=== PATIENT | female | born 1995 | race Caucasian/White ===

== ENCOUNTER 2017-04-23 09:50 | Emergency (ER) | payer MEDICAID ==
[~2017-04-23 09:50] MED LIST: IBUP600 PO; OXYC1SOL5 PO
--- NOTE | 2017-04-23 11:37 | PD ---
HPI Chief Complaint Syncopal episode Date Seen: Apr 23, 2017 Time Seen: 11:25 Travel History International Travel<30 Days: No Contact w/Intl Traveler<30Days: No Known Affected Area: No History of Present Illness HPI Pt is a 21 yo who presents to ED with c/o fall yesterday. Pt has EDC -07-05-2017, making her 29 weeks and [address] Wagner, previously uncomplicated. Pt states she slipped while cleaning a spiral staircase. Pt states she landed on her left side. Did not hit her head or her abdomen. Denies any vaginal bleeding or abdominal pain. She reports active movements. Weeks Gestation: 29 Para: 1 : 2 History Past Medical History Medical History: Denies Significant Hx Obstetric History Obstetric History previous term vaginal delivery, uncomplicated. this previously uncomplicated Past Surgical History Surgical History: No Previous Surgery Family History Family History: Negative Social History Alcohol Use: No Tobacco Use: No Substance Abuse: No Allergies-Medications (Allergen,Severity, Reaction): Coded Allergies: No Known Allergies (Verified , 03/02/16) Home Meds Active Scripts Ibuprofen (Motrin 600 Mg Tab) 600 Mg Tab, 600 MG PO Q6H Y for pain, #30 TAB 2 Refills Prov:Lobito Wagner MD 03/03/16 Oxycodone W/ Acetaminophen (Oxycodone/Acetaminophen 5-325 mg/5Ml) 5 mg/325 mg Tab, 1 TAB PO Q4H for moderate pain, #15 TAB Prov:Lobito Wagner MD 03/03/16 Review of Systems Except as stated in HPI: all other systems reviewed are Neg Physical Exam Narrative GENERAL: Well-nourished, well-developed patient. SKIN: Warm and dry. HEAD: Normocephalic and atraumatic. EYES: No scleral icterus. No injection or drainage. ENT: No nasal drainage noted. Mucous membranes pink. Airway patent. NECK: Supple, trachea midline. No JVD. CARDIOVASCULAR: Regular rate and rhythm without murmurs, gallops, or rubs. RESPIRATORY: Breath sounds equal bilaterally. No accessory muscle use. BREASTS: Bilateral exam showed no masses , no retractions, no nipple discharge. ABDOMEN/GI: Abdomen soft, non-tender, bowel sounds present, no rebound, no guarding Gravid to 29 weeks size No tenderness. GENITOURINARY: Uterine Contractions: [none] FHT's: Category: [1] Baseline: [130s] Reactive: [-] Variability: [good] Decels: [none] EXTREMITIES: No cyanosis or edema. BACK: Nontender without obvious deformity. No CVA tenderness. NEUROLOGICAL: Awake and alert. Motor and sensory grossly within normal limits. Five out of 5 muscle strength in all muscle groups. Normal speech. Data Data Vital Signs Reviewed: Yes MDM Interpretation(s) s/p fall yesterday. Reassuring testing. no abdominal pain, no vaginal bleeding Plan s/p fall 1 day ago. Reassuring testing. Will discharge home with precautions, Diagnosis Diagnosis: Primary Impression: 29 weeks gestation of Additional Impression: Fall (on) (from) unspecified stairs and steps, initial encounter Disposition: 01 DISCHARGE HOME Condition: Good Flavio Mendiola MD Apr 23, 2017 11:37
== END 2017-04-23 11:38 | disposition home or self-care (01) ==
LOC: HOBED 09:50
DX: Z04.3 Encounter for examination and observation following other accident (principal); Z3A.29 29 weeks gestation of pregnancy
CPT/HCPCS: 99283

== ENCOUNTER 2017-06-10 14:42 | Emergency (ER) | payer MEDICAID ==
--- NOTE | 2017-06-10 16:48 | PD ---
HPI Chief Complaint Spotting red and some cramping Date Seen: Jun 10, 2017 Time Seen: 16:40 Travel History International Travel<30 Days: No Contact w/Intl Traveler<30Days: No Known Affected Area: No History of Present Illness HPI Patient is 21-year-old white female at [address] Wagner care presents complaining of vaginal spotting just some light pink and red on her toilet paper. No ilda blood. No leakage of fluid. heart rate tracing is active and there is no regular contractions. Patient had placenta previa early in but this is resolved on ultrasound in March so only low-lying at this time Weeks Gestation: 36 Para: 1 : 2 History Obstetric History Obstetric History One vaginal delivery Social History Alcohol Use: No Tobacco Use: No Substance Abuse: No Allergies-Medications (Allergen,Severity, Reaction): Coded Allergies: No Known Allergies (Verified , 03/02/16) Home Meds Active Scripts Ibuprofen (Motrin 600 Mg Tab) 600 Mg Tab, 600 MG PO Q6H Y for pain, #30 TAB 2 Refills Prov:Lobito Wagner MD 03/03/16 Oxycodone W/ Acetaminophen (Oxycodone/Acetaminophen 5-325 mg/5Ml) 5 mg/325 mg Tab, 1 TAB PO Q4H for moderate pain, #15 TAB Prov:Lobito Wagner MD 03/03/16 Review of Systems General / Constitutional: No: Fever, Weight Gain, Chills, Other Eyes: No: Diploplia, Blurred Vision, Visual changes, Pain, Photophobia HENT: No: Headaches, Vertigo, Lightheadedness Cardiovascular: No: Irregular Rhythm, Chest Pain or Discomfort, Palpitations, Tachycardia, Syncope, Varicosities, Edema, Cyanosis Respiratory: No: Cough, Short of Breath, Other Gastrointestinal: No: Nausea, Vomiting, Diarrhea Genitourinary: Vaginal Bleeding, No: Decreased Urinary Output, Oliguria Musculoskeletal: No: Limited ROM, Weakness, Cramping, Edema, Pain Skin: No Rash, No Itching, No Dryness, No Lumps, No Change in Pigmentation, No Change in Nails, No Alopecia, No Lesions Neurologic: No: Weakness, Dizziness, Syncope, Focal Abnormalities, Coordination Problem, Headache, Slurred Speech, Seizures Psychiatric: No: Depression, Suicidal Ideations, Homicidal Ideation Endocrine: No: Heat Intolerance, Cold Intolerance, Polydipsia, Polyuria, Other Physical Exam Narrative GENERAL: Well-nourished, well-developed patient. SKIN: Warm and dry. HEAD: Normocephalic and atraumatic. EYES: No scleral icterus. No injection or drainage. ENT: No nasal drainage noted. Mucous membranes pink. Airway patent. NECK: Supple, trachea midline. No JVD. CARDIOVASCULAR: Regular rate and rhythm without murmurs, gallops, or rubs. RESPIRATORY: Breath sounds equal bilaterally. No accessory muscle use. BREASTS: Bilateral exam showed no masses , no retractions, no nipple discharge. ABDOMEN/GI: Abdomen soft, non-tender, bowel sounds present, no rebound, no guarding Gravid to [-36] weeks size Fundal Height: [36-] GENITOURINARY: External Genitalia: intact and normal in appearance BUS glands: [-] Cervix: [-] Dilatation: [3-4 cm] Effacement: [50-] Station: [-3] Presentation: [vtx-] Membranes: [intact ] Uterine Contractions: [occasional-] FHT's: Category: [1-] Baseline: [-150] Reactive: [yes-] Variability: [-mod] Decels: [none-] EXTREMITIES: No cyanosis or edema. BACK: Nontender without obvious deformity. No CVA tenderness. NEUROLOGICAL: Awake and alert. Motor and sensory grossly within normal limits. Five out of 5 muscle strength in all muscle groups. Normal speech. MDM Interpretation(s) Patient is 21-year-old white female at 36 weeks presents with some vaginal spotting noted today very minimal. She says she's never had that before so she was concerned and came and make sure that was okay. She denies leakage of fluid or significant contractions she has had some cramps. heart rate tracing is reactive and there is only an occasional contraction. Patient's cervix is 3-4/ 50% and -2 Plan Plan to discharge patient home to observation, bedrest as needed, observe for any significant bleeding. She may take Tylenol for discomfort, heating pad or hot bath first symptom relief. And a follow-up with her OB provider. Diagnosis Diagnosis: Primary Impression: Vaginal spotting Additional Impression: 36 weeks gestation of Disposition: DISCHARGE HOME Condition: Stable Sandeep Deng II, MD Jun 10, 2017 16:48
== END 2017-06-10 18:07 | disposition home or self-care (01) ==
LOC: HOBED 14:42
DX: O26.853 Spotting complicating pregnancy, third trimester (principal); Z3A.36 36 weeks gestation of pregnancy; Z79.899 Other long term (current) drug therapy
CPT/HCPCS: 59025; 84112

== ENCOUNTER 2017-06-26 21:34 | Inpatient (IN) | payer MEDICAID ==
[~2017-06-26] VITALS: Ht 170.2 cm; Wt 92.0 kg
[2017-06-26] VITALS (7 sets, daily range): BP systolic 113–138; BP diastolic 52–98; PULSE 92–112; RESP 18–22; TEMP 99.2
[~2017-06-26 21:34] MED LIST changes: +DIPHTH/TETANUS/ACEL PERTUSSIS (BOOSTER) 0.5 ML VIAL/PFS IM ONE; +MEASLES, MUMPS, RUBELLA VACCINE 0.5 ML VIAL SQ ONE
[2017-06-26] MEDS ORDERED: fentaNYL 2MCG-BUPIV 0.125% INJ 100 ML ONE (22:04)
[2017-06-26] MEDS ORDERED: LACTATED RINGER'S 1000 ML INJ 1,000 ML IV SCH (22:08)
[2017-06-26] MEDS ORDERED: LACTATED RINGER'S 1000 ML INJ 1,000 ML IV PRN (22:08)
[2017-06-26] MEDS ORDERED: MINERAL OIL 10 ML VIAL TOPICAL PRN (22:15)
[2017-06-26] MEDS ORDERED: OXYTOCIN 30 UNITS-500ML PREMIX 500 ML IV ONE ×2 (22:15→23:45)
[2017-06-26] MEDS ORDERED: LIDOCAINE HCL 1% 50 ML VIAL I-DERMAL PRN (22:15)
[2017-06-26] MEDS ORDERED: SODIUM CHLORID 0.9% 500 ML INJ 500 ML IV PRN (22:15)
[2017-06-26] MEDS ORDERED: CITRIC ACID-SODIUM CITRATE LIQ 30 ML UDC PO SCH (22:15)
[2017-06-26] MEDS ORDERED: ONDANSETRON HCL 4 MG/2 ML VIAL IV PUSH PRN (22:15)
[2017-06-26] MEDS ORDERED: LIDOCAINE HCL 1% 50 ML VIAL INFIL PRN (22:15)
--- NOTE | 2017-06-26 22:19 | HHI.HP ---
HPI Chief Complaint Decreased movement and regular uterine contractions Date Seen: Jun 26, 2017 Time Seen: 22:00 Travel History International Travel<30 Days: No Contact w/Intl Traveler<30Days: No History of Present Illness HPI 21-year-old white female comes in with regular uterine contractions and decreased movement her cervix is 8 cm and she is being admitted for labor Weeks Gestation: 38 Para: 1 : 2 History Past Medical History Narrative Medical Chronic anemia Obstetric History Obstetric History Para 1001 Past Surgical History Narrative Surgical Negative Family History Family History: Negative Social History Alcohol Use: No Tobacco Use: No Substance Abuse: No Allergies-Medications (Allergen,Severity, Reaction): Coded Allergies: No Known Allergies (Verified , 03/02/16) Home Meds Active Scripts Ibuprofen (Motrin 600 Mg Tab) 600 Mg Tab, 600 MG PO Q6H Y for pain, #30 TAB 2 Refills Prov:Lobito Wagner MD 03/03/16 Oxycodone W/ Acetaminophen (Oxycodone/Acetaminophen 5-325 mg/5Ml) 5 mg/325 mg Tab, 1 TAB PO Q4H for moderate pain, #15 TAB Prov:Lobito Wagner MD 03/03/16 Physical Exam Narrative GENERAL: Well-nourished, well-developed patient. SKIN: Warm and dry. HEAD: Normocephalic and atraumatic. EYES: No scleral icterus. No injection or drainage. ENT: No nasal drainage noted. Mucous membranes pink. Airway patent. NECK: Supple, trachea midline. No JVD. CARDIOVASCULAR: Regular rate and rhythm without murmurs, gallops, or rubs. RESPIRATORY: Breath sounds equal bilaterally. No accessory muscle use. BREASTS: Bilateral exam showed no masses , no retractions, no nipple discharge. ABDOMEN/GI: Abdomen soft, non-tender, bowel sounds present, no rebound, no guarding Gravid to [-] weeks size Fundal Height: [-] GENITOURINARY: External Genitalia: intact and normal in appearance BUS glands: [-] Cervix: [8] Dilatation: 8 Effacement: 100% Station: +2 next vertex Presentation: [-] Membranes: [intact or ruptured] Uterine Contractions: [-] FHT's: Category: [-] Baseline: [-] Reactive: [-] Variability: [-] Decels: [-] EXTREMITIES: No cyanosis or edema. BACK: Nontender without obvious deformity. No CVA tenderness. NEUROLOGICAL: Awake and alert. Motor and sensory grossly within normal limits. Five out of 5 muscle strength in all muscle groups. Normal speech. Caprini VTE Risk Assessment Caprini VTE Risk Assessment: No/Low Risk (score <= 1) Caprini Risk Assessment Model Point Value = 1 Point Value = 2 Point Value = 3 Point Value = 5 Age 41-60 Minor surgery BMI > 25 kg/m2 Swollen legs Varicose veins or History of unexplained or recurrent spontaneous Oral contraceptives or hormone replacement Sepsis (< 1 month) Serious lung disease, including pneumonia (< 1 month) Abnormal pulmonary function Acute myocardial infarction Congestive heart failure (< 1 month) History of inflammatory bowel disease Medical patient at bed rest Age 61-74 Arthroscopic surgery Major open surgery (> 45 min) Laparoscopic surgery (> 45 min) Malignancy Confined to bed (> 72 hours) Immobilizing plaster cast Central venous access Age >= 75 History of VTE Family history of VTE Factor V Leiden Prothrombin [id number] Lupus anticoagulant Anticardiolipin antibodies Elevated serum homocysteine Heparin-induced thrombocytopenia Other congenital or acquired thrombophilia Stroke (< 1 month) Elective arthroplasty Hip, pelvis, or leg fracture Acute spinal cord injury (< 1 month) Prophylaxis Regimen Total Risk Factor Score Risk Level Prophylaxis Regimen 0-1 Low Early ambulation 2 Moderate Order ONE of the following: *Sequential Compression Device (SCD) *Heparin 5000 units SQ BID 3-4 Higher Order ONE of the following medications: *Heparin 5000 units SQ TID *Enoxaparin/Lovenox 40 mg SQ daily (WT < 150 kg, CrCl > 30 mL/min) *Enoxaparin/Lovenox 30 mg SQ daily (WT < 150 kg, CrCl > 10-29 mL/min) *Enoxaparin/Lovenox 30 mg SQ BID (WT < 150 kg, CrCl > 30 mL/min) AND/OR *Sequential Compression Device (SCD) 5 or more Highest Order ONE of the following medications: *Heparin 5000 units SQ TID (Preferred with Epidurals) *Enoxaparin/Lovenox 40 mg SQ daily (WT < 150 kg, CrCl > 30 mL/min) *Enoxaparin/Lovenox 30 mg SQ daily (WT < 150 kg, CrCl > 10-29 mL/min) *Enoxaparin/Lovenox 30 mg SQ BID (WT < 150 kg, CrCl > 30 mL/min) AND *Sequential Compression Device (SCD) Data Data Orders Orders Fentanyl 2mcg-Bupiv 0.125% Inj (Fentanyl (06/26/17 22:04) Admit To Inpatient (06/26/17 ) Code Status (06/26/17 22:08) Vital Signs (Adult) .Per protocol (06/26/17 22:08) Activity Oob Ad Caroline (06/26/17 22:08) Heart (06/26/17 22:08) Amnioinfusion (06/26/17 22:08) Urinary Catheter Management .ONCE (06/26/17 22:08) Diet Liquid (06/27/17 Breakfast) Lactated Ringer's 1000 Ml Inj (Lr 1000 M (06/26/17 22:08) Lactated Ringer's 1000 Ml Inj (Lr 1000 M (06/26/17 22:08) Sodium Chlorid 0.9% 500 Ml Inj (Ns 500 M (06/26/17 22:15) Sodium Chlor 0.9% 1000 Ml Inj (Ns 1000 M (06/26/17 22:28) Lidocaine 1% Inj (50 Ml) (Xylocaine 1% I (06/26/17 22:15) Citric Acid-Sodium Citrate Liq (Bicitra (06/26/17 22:15) Ondansetron Inj (Zofran Inj) (06/26/17 22:15) Fentanyl Inj (Fentanyl Inj) (06/26/17 22:15) Fentanyl Inj (Fentanyl Inj) (06/26/17 22:15) Complete Blood Count With Diff (06/26/17 22:08) Hold Clot (06/26/17 22:08) Abo/Rh Blood Type (06/26/17 22:08) Urinalysis - C+S If Indicated (06/26/17 22:08) Drug Screen, Random Urine (06/26/17 22:08) Resp Oxygen Non Rebreathe Mask (06/26/17 ) ^ Epidural / Intrathecal Infus (06/26/17 22:08) Oxytocin 30 Units-500ml Premix (Pitocin (06/26/17 22:15) Lidocaine 1% Inj (50 Ml) (Xylocaine 1% I (06/26/17 22:15) Light Mineral Oil (Muri-Lube Oil) (06/26/17 22:15) Inpatient Certification (06/26/17 ) Assessment/Plan Assessment and Plan 1. Intrauterine at 38 weeks and 5 days with advanced labor will go ahead and admit her and expected normal vaginal delivery 2. GBS 3. Anemia we'll check her blood count and continue her iron. During her period I stressed the need for iron supplementation. Lobito Wagner MD Jun 26, 2017 22:19
[2017-06-26 22:27] LABS: AUTOMATED NEUTROPHIL # 9.6 TH/MM3 (1.8-7.7); BASOPHIL # 0.1 TH/MM3 (0-0.2); BASOPHIL % 0.4 % (0.0-2.0); EOSINOPHIL # 0.2 TH/MM3 (0-0.4); EOSINOPHIL % 1.5 % (0.0-4.0); HEMATOCRIT 30.7 % (35.0-46.0); HEMOGLOBIN 9.8 GM/DL (11.6-15.3); LYMPH % 18.2 % (9.0-44.0); LYMPHOCYTE # 2.4 TH/MM3 (1.0-4.8); MEAN CELL VOLUME 67.4 FL (80.0-100.0); MEAN CORPUSCULAR HEMOGLOBIN 21.4 PG (27.0-34.0); MEAN CORPUSCULAR HGB CONC 31.8 % (32.0-36.0); MEAN PLATELET VOLUME 8.8 FL (7.0-11.0); MONO % 8.6 % (0.0-8.0); MONOCYTE # 1.2 TH/MM3 (0-0.9); NEUT % 71.3 % (16.0-70.0); PLATELET COUNT 325 TH/MM3 (150-450); RED BLOOD COUNT 4.56 MIL/MM3 (4.00-5.30); RED CELL DISTRIBUTION WIDTH 15.5 % (11.6-17.2); WHITE BLOOD COUNT 13.5 TH/MM3 (4.0-11.0)
[2017-06-26] MEDS ORDERED: SODIUM CHLOR 0.9% 1000 ML INJ 1,000 ML IV PRN (22:28)
[2017-06-26 22:41] LABS: BACTERIA, URINE MOD /hpf; BILIRUBIN, URINE NEG (NEG); BLOOD, URINE NEG (NEG); GLUCOSE,URINE NEG (NEG); KETONE, URINE NEG (NEG); MUCUS URINE FEW /lpf (OCC); NITRITE,URINE NEG (NEG); SQUAMOUS EPITHELIAL CELL URINE 4 /hpf (0-5); URINE COLOR LIGHT-YELLOW (YELLW/STRAW); URINE LEUKOCYTE ESTERASE SMALL (NEG)
[2017-06-26] MEDS ORDERED: MEPERIDINE HCL 50 MG/ML VIAL ONE (22:55)
--- NOTE | 2017-06-26 23:33 | PD.OB.DELI ---
Weeks gestation: 38 Gest age assessed date: Jun 26, 2017 Pt started active labor?: Yes Active labor start date: Jun 26, 2017 Medical induction of labor?: No Artificial rupture of membrane: No Anesthesia: None Episiotomy: None Vaginal Delivery: Normal Presentation: Occiput anterior Nuchal Cord: x1 Delayed cord clamping (45 sec): Yes : Male Delivery date: Jun 26, 2017 Delivery time: 22:50 One Minute : 8 Five Minute : 9 Weight: 8/1 Placenta: Spontaneous delivery, Intact, 3 vessel cord Laceration: Perineal laceration Estimated blood loss: 450 Additional Information Quick delivery of [place] No meds and very painful. Tight nucal cord X1`. reduced on perinuem Placenta S/I/3VC Uterine atony with some bleeding..Internal massage quickly clamped the uterus down. Uterus is empty. Small 2nd degree perineal tear repaired. Lobito Wagner MD Jun 26, 2017 23:33
[2017-06-26] MEDS ORDERED: ONDANSETRON ODT 4 MG TAB PO PRN (23:45)
[2017-06-26] MEDS ORDERED: ZOLPIDEM TARTRATE 5 MG TAB PO PRN (23:45)
[2017-06-26] MEDS ORDERED: WITCH HAZEL 50%/GLYCERIN 12.5% 40 PAD JAR TOPICAL PRN (23:45)
[2017-06-26] MEDS ORDERED: DOCUSATE SODIUM 50 MG/SENNA 8.6 MG TAB PO PRN (23:45)
[2017-06-26] MEDS ORDERED: BENZOCAINE 20% TOPICAL SPRAY 60 ML CAN TOPICAL PRN (23:45)
[2017-06-26] MEDS ORDERED: OXYTOCIN 30 UNITS-500ML PREMIX 500 ML IV SCH (23:45)
[2017-06-26] MEDS ORDERED: ALUMINUM/MAGNESIUM/SIMETH 30 ML CUP PO PRN (23:45)
[2017-06-26] MEDS ORDERED: SODIUM CHLORIDE 0.9% FLUSH 10 ML FLUSH IV FLUSH PRN (23:45)
[2017-06-27] VITALS (8 sets, daily range): BP systolic 100–123; BP diastolic 53–77; PULSE 78–91; RESP 16–20; TEMP 95.8–98.3; O2SAT 0
[2017-06-27] MEDS ORDERED: PREN29TA PO (00:19)
[2017-06-27] MEDS: SODIUM CHLORIDE 0.9% FLUSH 10 ML FLUSH IV FLUSH SCH (00:40)
[2017-06-27] MEDS: IBUPROFEN 800 MG TAB PO PRN ×3 (01:12→21:37)
[2017-06-27] MEDS: ACETAMINOPHEN 325 MG TAB PO PRN ×3 (03:27→14:10)
[2017-06-27] MEDS ORDERED: MEPERIDINE HCL 50 MG/ML VIAL IV PUSH ONE (06:00)
--- NOTE | 2017-06-27 12:27 | HHI.OB ---
Subjective Post Day: 1 Remarks Doing well Pain is controlled Bleeding is normal baby is doing well. Can we circumcise the baby ?? Objective Vitals/I&O Vital Signs Date Time Temp Pulse Resp B/P (MAP) Pulse Ox O2 Delivery O2 Flow Rate FiO2 06/27/17 08:00 95.8 78 20 109/65 (80) 0 06/27/17 01:19 98.3 88 16 123/71 (88) 06/27/17 00:25 98.2 06/27/17 00:25 18 06/27/17 00:15 87 116/77 (90) 06/27/17 00:02 86 112/73 (86) 06/27/17 00:01 18 06/26/17 23:50 18 06/26/17 23:46 92 122/98 (106) 06/26/17 23:30 97 117/67 (84) 06/26/17 23:26 99.2 06/26/17 23:17 105 113/52 (72) 06/26/17 23:15 18 06/26/17 22:18 112 22 138/74 (95) Objective Remarks GENERAL: Well-nourished, well-developed patient. CARDIOVASCULAR: Regular rate and rhythm without murmurs, gallops, or rubs. RESPIRATORY: Breath sounds equal bilaterally. No accessory muscle use. ABDOMEN/GI: Abdomen soft, non-tender. Fundus: Firm, non-tender at umbilicus. GENITOURINARY: Light to moderate bleeding. EXTREMITIES: No cyanosis or edema, non-tender, without signs of DVT. Medications and IVs Current Medications Medications (Trade) Dose Ordered Sig/Jatinder Route Start Time Stop Time Status Last Admin (NS Flush) 2 ml BID IV FLUSH 06/27/17 09:00 06/27/17 00:40 (NS Flush) 2 ml UNSCH PRN IV FLUSH 06/26/17 23:45 (Tylenol) 650 mg Q4H PRN PO 06/26/17 23:45 06/27/17 08:54 (Motrin) 800 mg Q8H PRN PO 06/26/17 23:45 06/27/17 08:53 (Americaine 20% Top Spr) 1 spray Q4H PRN TOPICAL 06/26/17 23:45 1/7/18 01:12 (Tucks Pads) 1 applic QID PRN TOPICAL 06/26/17 23:45 06/27/17 01:12 (Farzaneh-Colace) 2 tab Q12H PRN PO 06/26/17 23:45 (Ambien) 5 mg HS PRN PO 06/26/17 23:45 (Mag-Al Plus Susp Liq) 15 ml Q8H PRN PO 06/26/17 23:45 (Zofran Odt) 4 mg Q6H PRN PO 06/26/17 23:45 Assessment/Plan Assessment and Plan PPD #1 Doing well Routine care Circ tomorrow. Discharge Planning tomorrow Lobito Wagner MD Jun 27, 2017 12:27
[2017-06-27] MEDS ORDERED: IBUP1TAB7 PO (12:28)
--- NOTE | 2017-06-27 12:30 | HHI.DCPOC ---
Discharge Care Plan Diagnosis: (1) Vaginal delivery Report Symptoms to Your Doctor -Temperature above 100.5 degrees -Redness, of incision or excessive or foul smelling drainage -Unusual pain or calf pain -Increased vaginal bleeding -Painful or difficulty urinating -Feelings of extreme sadness or anxiety after 2 weeks Goals to Promote Your Health * To prevent worsening of your condition and complications * To maintain your health at the optimal level Directions to Meet Your Goals Take your medications as prescribed Follow your dietary instruction Follow activity as directed Ensure plenty of rest for recovery Drink fluids for hydration Keep your appointments as scheduled Take your immunizations and boosters as scheduled If your symptoms worsen call your PCP, if no PCP go to Urgent Care Center or Emergency Room Smoking is Dangerous to Your Health. Avoid second hand smoke Call the 24-hour crisis hotline for domestic abuse at Lobito Wagner MD Jun 27, 2017 12:30
--- NOTE | 2017-06-28 08:53 | HHI.OB ---
Subjective Post Day: 2 Objective Vitals/I&O Vital Signs Date Time Temp Pulse Resp B/P (MAP) Pulse Ox O2 Delivery O2 Flow Rate FiO2 06/27/17 21:33 97.8 06/27/17 21:33 91 16 100/53 (69) 06/27/17 09:00 95.8 78 20 109/65 (80) Objective Remarks GENERAL: Well-nourished, well-developed patient. CARDIOVASCULAR: Regular rate and rhythm without murmurs, gallops, or rubs. RESPIRATORY: Breath sounds equal bilaterally. No accessory muscle use. ABDOMEN/GI: Abdomen soft, non-tender. Fundus: Firm, non-tender at umbilicus. GENITOURINARY: Light to moderate bleeding. EXTREMITIES: No cyanosis or edema, non-tender, without signs of DVT. Medications and IVs Current Medications Medications (Trade) Dose Ordered Sig/Jatinder Route Start Time Stop Time Status Last Admin (NS Flush) 2 ml BID IV FLUSH 06/27/17 09:00 06/27/17 00:40 (NS Flush) 2 ml UNSCH PRN IV FLUSH 06/26/17 23:45 (Tylenol) 650 mg Q4H PRN PO 06/26/17 23:45 06/27/17 14:10 (Motrin) 800 mg Q8H PRN PO 06/26/17 23:45 06/27/17 21:37 (Americaine 20% Top Spr) 1 spray Q4H PRN TOPICAL 06/26/17 23:45 06/27/17 01:12 (Tucks Pads) 1 applic QID PRN TOPICAL 06/26/17 23:45 06/27/17 01:12 (Farzaneh-Colace) 2 tab Q12H PRN PO 06/26/17 23:45 (Ambien) 5 mg HS PRN PO 06/26/17 23:45 (Mag-Al Plus Susp Liq) 15 ml Q8H PRN PO 06/26/17 23:45 06/27/17 18:57 (Zofran Odt) 4 mg Q6H PRN PO 06/26/17 23:45 Assessment/Plan Assessment and Plan PPD #2 Doing well pain well managed with oral pain medication is going well Routine care Discharge Planning dc home today Theresa Sevilla Jun 28, 2017 08:53
[2017-06-28] MEDS: SODIUM CHLORIDE 0.9% FLUSH 10 ML FLUSH IV FLUSH SCH (09:00)
[2017-06-28 09:15] VITALS: BP 111/62; PULSE 84; RESP 20; TEMP 98.4
== END 2017-06-28 14:33 | disposition home or self-care (01) | DRG 774 ==
LOC: HOBED 21:34 → H2EB 22:16 → H1EA 06-27 01:10
PROVIDERS: ADMIT Obstetrics & Gynecology; ATTEND Obstetrics & Gynecology
PROC: 10E0XZZ Delivery of Products of Conception, External Approach (ICD-10-PCS; principal; 2017-06-26)
PROC: 0KQM0ZZ Repair Perineum Muscle, Open Approach (ICD-10-PCS; 2017-06-26)
DX: O36.8130 Decreased fetal movements, third trimester, not applicable or unspecified (principal); O72.1 Other immediate postpartum hemorrhage; D64.9 Anemia, unspecified; Z37.0 Single live birth; O69.81X0 Labor and delivery complicated by cord around neck, without compression, not applicable or unspecified; O70.1 Second degree perineal laceration during delivery; O99.02 Anemia complicating childbirth; Z3A.38 38 weeks gestation of pregnancy
CPT/HCPCS: 59025; 80307; 81001; 85025; 86900; 86901; 87086; 90715; J2175; J2590; J7120